=== PATIENT | female | born 1985 | race African-American/Black ===

== ENCOUNTER 2019-02-15 16:44 | Emergency (ER) | payer OTHER ==
[2019-02-15] MEDS ORDERED: KETOROLAC 60 MG/2 ML VIAL IM STA (17:33)
[2019-02-15] MEDS ORDERED: DEXAMETHASONE 10 MG/ML VIAL PO STA (17:33)
[2019-02-15] MEDS ORDERED: CHERRY SYRUP 10 ML UDC PO ONE (17:33)
[2019-02-15] MEDS ORDERED: LIDOCAINE PATCH 5% TOP STA (17:33)
--- NOTE | 2019-02-15 18:05 | ED Physician Documentation ---
PD HPI BACK PAIN - Stated complaint Stated Complaint: BACK PX - Chief complaint Chief Complaint: Back Pain - History obtained from History obtained from: Patient - History of Present Illness Timing - onset: How many hours ago (1) Timing - duration: Hours (1) Timing - details: Still present Location: Lower, Left Quality: Spasm, Sharp Worsened by: Movement Contributing factors: Twisting Similar symptoms before: Diagnosis (Similar low back pain occurred about 2 weeks ago when lifting.) - Additional information Additional information: The patient is a 33-year-old [employer] female who presents with left lower back pain that started about one hour prior to arrival while on an elliptical machine as part of her PRT. She denies any recent fever, urinary incontinence, numbness or weakness. Her last menstrual period was one week ago. She has a history of similar but less severe "shooting" lower back pain about 2 weeks ago after lifting. Review of Systems Constitutional: denies: Fever Nose: denies: Congestion Cardiac: denies: Chest pain / pressure Respiratory: denies: Dyspnea, Cough GI: denies: Abdominal Pain, Nausea, Vomiting : reports: LMP (1 week ago.). denies: Dysuria, Incontinent Skin: denies: Rash Musculoskeletal: reports: Back pain. denies: Neck pain, Extremity pain Neurologic: denies: Focal weakness, Numbness, Headache PD PAST MEDICAL HISTORY - Past Medical History Past Medical History: Yes - Past Surgical History Past Surgical History: No - Present Medications Home Medications: Ambulatory Orders Medication Instructions Recorded Confirmed Cyclobenzaprine [Flexeril] 10 mg PO TID PRN #20 tablet 02/15/19 Naproxen [Naprosyn] 500 mg PO BID #30 tablet 02/15/19 - Allergies Allergies/Adverse Reactions: Allergies Allergy/AdvReac Type Severity Reaction Status Date / Time No Known Drug Allergies Allergy Verified 02/15/19 17:00 - Social History Does the pt smoke?: No Smoking Status: Never smoker PD ED PE NORMAL - Vitals Vital signs reviewed: Yes (normal) - General General: Alert and oriented X 3, Well developed/nourished, Other (Appears uncomfortable as she walks to the [facility].) - HEENT HEENT: Atraumatic, Pharynx benign - Neck Neck: No bony TTP - Cardiac Cardiac: RRR, No murmur - Respiratory Respiratory: No respiratory distress, Clear bilaterally - Abdomen Abdomen: Soft, Non tender - Back Back: No CVA TTP, No spinal TTP, Other (There is tenderness to palpation in the left paralumbar musculature into the left sacrum. No tenderness along the spinous processes.) - Derm Derm: No rash - Extremities Extremities: No tenderness to palpate, No edema, No calf tenderness / cord, Other (Straight leg raise test is negative bilaterally.) - Neuro Neuro: Alert and oriented X 3, No motor deficit, No sensory deficit Results - Vitals Vitals: Oxygen O2 Source Room air PD MEDICAL DECISION MAKING - ED course Complexity details: re-evaluated patient, considered differential, d/w patient ED course: The patient's presentation is most consistent with acute lumbar strain. Her presentation does not suggest cauda equina syndrome, epidural abscess, or spinal stenosis. Treatment in the emergency department included administration of lidocaine patch, ketorolac 60 mg IM, and dexamethasone 10 mg orally. Her symptoms significantly improved with the above treatment. She feels subjectively much better, and demonstrates ability to ambulate without apparent discomfort. She is being discharged with prescriptions for Naprosyn and for Flexeril. I discussed with her the expected course of injury, symptomatic treatment and outpatient follow-up, as well as potentially worrisome signs or symptoms that should prompt reevaluation in the emergency department. Departure - Departure Disposition: 01 Home, Self Care Clinical Impression: Acute lumbosacral myofascial strain Qualifiers: Encounter type: initial encounter Qualified Code(s): S39.012A - Strain of muscle, fascia and tendon of lower back, initial encounter Condition: Stable Instructions: ED Sprain Strain Lumbar Follow-Up: CHAU BURNETT MD [Primary Care Provider] - Prescriptions: Cyclobenzaprine [Flexeril] 10 mg PO TID PRN #20 tablet PRN Reason: Spasms Naproxen [Naprosyn] 500 mg PO BID #30 tablet Comments: Apply ice pack to your lower back intermittently for the next 3 days. You can use Naprosyn twice daily as prescribed. You can use Flexeril as prescribed as needed for muscle spasms. Let pain be your guide to activity level. Follow-up with your primary physician within 1 week. Call to schedule an appointment. Return to the emergency department if you develop increasing back pain, numbness or weakness in your lower extremities, urinary incontinence, or otherwise worsening symptoms. Forms: Activity restrictions Discharge Date/Time: 02/15/19 18:12
[2019-02-15 18:12] VITALS: BP 127/68
== END 2019-02-15 18:12 | disposition home or self-care (01) ==
LOC: ED 16:44
DX: S39.012A Strain of muscle, fascia and tendon of lower back, initial encounter (principal); X50.9XXA Other and unspecified overexertion or strenuous movements or postures, initial encounter; Y93.A1 Activity, exercise machines primarily for cardiorespiratory conditioning
CPT/HCPCS: 96372; 99283; A9270

== ENCOUNTER 2022-02-26 08:33 | Emergency (ER) | payer OTHER ==
[2022-02-26] MEDS ORDERED: KETOROLAC 60 MG/2 ML VIAL IM STA (08:58)
[2022-02-26] MEDS ORDERED: HYDROmorphone 1 MG/ML CARPUJECT IM STA (08:58)
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
[2022-02-26] MEDS ORDERED: ONDANSETRON ODT 4 MG TABLET TL STA (09:38)
[2022-02-26 09:46] VITALS: BP 136/68
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
== END 2022-02-26 10:19 | disposition home or self-care (01) ==
LOC: ED 08:33
DX: M54.2 Cervicalgia (principal); R51.9 Headache, unspecified; V48.0XXA Car driver injured in noncollision transport accident in nontraffic accident, initial encounter
CPT/HCPCS: 70450; 72125; 96372; 99283; 99284; J1170; Q0162

== ENCOUNTER 2022-05-20 08:00 | Outpatient (CLI) | payer OTHER ==
[2022-05-21 00:14] LABS: BACTERIAL VAGINOSIS DNA POSITIVE (NEGATIVE); CANDIDA GLABRATA DNA NEGATIVE (NEGATIVE); CANDIDA GROUP DNA POSITIVE (NEGATIVE); CANDIDA KRUSEI DNA NEGATIVE (NEGATIVE); TRICHOMONAS VAGINALIS DNA NEGATIVE (NEGATIVE)
[2022-05-21 02:18] LABS: NEISSERIA GONORRHOEAE DNA NEGATIVE (NEGATIVE)
[2022-05-21 03:38] LABS: CHLAMYDIA TRACHOMATIS DNA POSITIVE (NEGATIVE)
== END 2022-05-20 23:59 | disposition home or self-care (01) ==
LOC: LAB.N 08:00
PROVIDERS: ATTEND Family Medicine
DX: R30.0 Dysuria (principal); R10.30 Lower abdominal pain, unspecified
CPT/HCPCS: 81514; 87086; 87181; 87491; 87591; 87661

== ENCOUNTER 2022-08-08 15:18 | Emergency (ER) | payer OTHER ==
[2022-08-08 15:28] VITALS: BP 147/87
[2022-08-08 16:42] LABS: BILIRUBIN,URINE NEGATIVE (NEGATIVE); GLUCOSE, URINE (UA) NEGATIVE (NEGATIVE); KETONES,URINE (UA) NEGATIVE (NEGATIVE); LEUKOCYTE ESTERASE, URINE TRACE (NEGATIVE); NITRITE,URINE NEGATIVE (NEGATIVE); OCCULT BLOOD,URINE NEGATIVE (NEGATIVE); PH,URINE 6.5 PH (5.0-7.5); PROTEIN,URINE NEGATIVE (NEGATIVE); UROBILINOGEN,URINE 1 (NORMAL) E.U./dL (NORMAL)
[2022-08-08 16:46] LABS: CLARITY,URINE HAZY (CLEAR)
[2022-08-08 16:47] LABS: HCG UR QUAL NEGATIVE
[2022-08-08 17:10] LABS: BACTERIA,URINE Few /HPF (None Seen); MUCUS,URINE Marked Strands; RBC,URINE 0-5 /HPF (0-5); SQUAMOUS EPITHELIAL CELL,UR MANY Squamous (<= Few)
--- NOTE | 2022-08-08 17:33 | ED Physician Documentation ---
History of Present Illness - Stated complaint Stated Complaint: FEMALE - Chief complaint Chief Complaint: UTI - History obtained from History obtained from: Patient - Additonal information Additional information: Very pleasant 37-year-old female with no significant past medical history who presented with mild dysuria and, pruritus and nonodorous vaginal discharge over the last couple of days. She has not had any fever chills, no flank pain, no pelvic pain or abdominal pain, no nausea vomiting or diarrhea. Patient would like to be tested for STIs as well including gonorrhea, chlamydia and tr ichomoniasis but denies any concerning exposure. Review of Systems Ten Systems: 10 systems reviewed and negative (Except as noted in HPI) PD PAST MEDICAL HISTORY - Past Medical History Past Medical History: No - Past Surgical History Past Surgical History: No - Present Medications Home Medications: Ambulatory Orders Medication Instructions Recorded Confirmed Ferrous Sulfate 325 mg PO DAILY PM 08/08/22 08/08/22 Nitrofurantoin [Macrobid] 100 mg PO BID 5 Days #10 cap 08/08/22 - Allergies Allergies/Adverse Reactions: Allergies Allergy/AdvReac Type Severity Reaction Status Date / Time No Known Drug Allergies Allergy Verified 08/08/22 15:28 - Social History Does the pt smoke?: No Smoking Status: Never smoker - POLST Patient has POLST: No PD ED PE NORMAL - Vitals Vital signs reviewed: Yes - General General: Alert and oriented X 3, No acute distress, Well developed/nourished - HEENT HEENT: Atraumatic, Moist mucous membranes - Cardiac Cardiac: RRR, No murmur - Respiratory Respiratory: No respiratory distress, Clear bilaterally - Abdomen Abdomen: Normal bowel sounds, Soft, Non tender, Non distended - Back Back: No CVA TTP - Derm Derm: Normal color, Warm and dry, No rash - Neuro Neuro: Alert and oriented X 3 Eye Opening: Spontaneous Motor: Obeys Commands Verbal: Oriented GCS Score: 15 Results - Vitals Vitals: Vital Signs - 24 hr 08/08/22 15:24 Temperature 37 C Heart Rate 77 Respiratory 14 Rate Blood Pressure 147/87 H O2 Saturation 100 Oxygen O2 Source Room air - Labs Labs: Laboratory Tests 08/08/22 08/08/22 16:17 16:17 Urine Color YELLOW Urine Clarity HAZY Urine pH 6.5 Ur Specific [place] 1.025 Urine Protein NEGATIVE Urine Glucose (UA) NEGATIVE Urine Ketones NEGATIVE Urine Occult Blood NEGATIVE Urine Nitrite NEGATIVE Urine Bilirubin NEGATIVE Urine Urobilinogen 1 (NORMAL) Ur Leukocyte Esterase TRACE H Urine RBC 0-5 Urine WBC 6-10 H Ur Squamous Epith Cells MANY Squamous H Urine Bacteria Few Urine Mucus Marked Strands Ur Microscopic Review INDICATED Urine Culture Comments NOT INDICATED Urine HCG, Qual NEGATIVE PD MEDICAL DECISION MAKING - ED course Complexity details: considered differential, d/w patient ED course: Patient presented with mild UTI symptoms with mild dysuria, pruritus and nonodorous vaginal discharge. Will obtain a urinalysis which is suggestive of a possible urinary tract infection with trace leuk esterase, WBCs negative nitrites. We also obtain a gonorrhea, chlamydia and trichomoniasis swab. The results for this is pending. We will treat the patient for possible UTI at this time, and recommended amrb-jro-dcpncfh yeast medication if she has pruritus and nonodorous vaginal discharge. It patient was advised to follow-up via phone for her results of other testing and remain abstinent until then or use protection. I would not treat for STI Empirically at this point as it is more likely patient has urinary tract infection. Departure - Departure Disposition: 01 Home, Self Care Clinical Impression: Urinary tract infection Qualifiers: Urinary tract infection type: acute cystitis Condition: Good Instructions: ED UTI Cystitis Female Prescriptions: Nitrofurantoin [Macrobid] 100 mg PO BID 5 Days #10 cap Discharge Date/Time: 08/08/22 17:34
[2022-08-08 20:37] LABS: CHLAMYDIA TRACHOMATIS DNA NEGATIVE (NEGATIVE); NEISSERIA GONORRHOEAE DNA NEGATIVE (NEGATIVE); TRICHOMONAS VAGINALIS DNA NEGATIVE (NEGATIVE)
== END 2022-08-08 17:34 | disposition home or self-care (01) ==
LOC: ED 15:18
DX: N30.00 Acute cystitis without hematuria (principal)
CPT/HCPCS: 81001; 81003; 81025; 87086; 87491; 87591; 87661; 99282; 99283

== ENCOUNTER 2022-10-11 20:00 | Outpatient (CLI) | payer OTHER | END 2022-10-11 20:01 | disposition EMS.NT | LOC: EMS 20:00 | DX: S05.91XA Unspecified injury of right eye and orbit, initial encounter (principal); S50.811A Abrasion of right forearm, initial encounter; Y04.8XXA Assault by other bodily force, initial encounter; Y92.009 Unspecified place in unspecified non-institutional (private) residence as the place of occurrence of the external cause ==

== ENCOUNTER 2022-10-11 20:52 | Emergency (ER) | payer OTHER ==
[2022-10-11] MEDS ORDERED: PROPARACAINE 0.5% OPHTH DROPS 15 ML RIGHTEYE STA (21:00)
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
[2022-10-11 21:21] LABS: HCG UR QUAL NEGATIVE
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
[2022-10-11] MEDS ORDERED: HYDROcod/ACET 5/325 Prepack 4 PO STA (22:50)
[2022-10-11 22:57] VITALS: BP 144/84
== END 2022-10-11 22:55 | disposition home or self-care (01) ==
LOC: EDUNIT# → ED 20:52
DX: H11.31 Conjunctival hemorrhage, right eye (principal); T74.11XA Adult physical abuse, confirmed, initial encounter; Y07.01 Husband, perpetrator of maltreatment and neglect
CPT/HCPCS: 70480; 81025; 99283; 99284; J3490